=== PATIENT | female | born 1945 | race Caucasian/White ===

== ENCOUNTER 2020-01-18 13:27 | Inpatient (IN) | payer MEDICARE, OTHER, SELFPAY ==
[2020-01-18 13:30] VITALS: BP 104/49; PULSE 94; RESP 16; TEMP 37.1; O2SAT 94
[2020-01-18 13:56] VITALS: BMI 29.8; BMI 29.9
--- NOTE | 2020-01-18 14:08 | HP.PCM_ITS ---
Problem List (1) Osteoarthritis Status: Chronic (2) Depression Status: Chronic (3) Scoliosis of lumbar spine Status: Chronic (4) History of spinal fusion Status: Acute Comment: T4 through the pelvis with flap muscle/myocutaneous/fasciocutaneous trunk and removal of spinal stimulator (5) GERD (gastroesophageal reflux disease) Status: Chronic (6) Spinal stenosis Status: Chronic Qualifiers: Spinal region: thoracolumbar Qualified Code(s): M48.05 - Spinal stenosis, thoracolumbar region (7) History of migraine Status: Chronic (8) Tobacco dependence in remission Status: Inactive Comment: She quit smoking at the age of 32 (9) History of nephrolithiasis Status: Acute (10) Chronic pain syndrome Status: Chronic (11) Hypokalemia Status: Acute (12) Acute blood loss anemia Status: Acute (13) Medical cannabis use Status: Chronic (14) Abnormal LFTs Status: Acute (15) Transfusion history Status: Acute Comment: at [facility] had transfusion of PRBC's and plasma History of Present Illness Date of Admission: 01/18/20 Chief Complaint: Physical debility secondary to recent spinal fusion from T4 through the pelvis Marisol Vasquez is a 75 YO F with a PMH of GERD, severe spinal stenosis, spinal stimulator insertion, chronic pain syndrome, scoliosis, history of migraines, history of nephrolithiasis, depression, tobacco dependence in rem ission (quit when she was 32 years of age) and medical cannabis use who underwent a spinal fusion from T4 through the pelvis on 01/13/20 at [facility]. Plastic surgery closed the wound with a myocutaneous flap. While at [facility] she had acute blood loss anemia and was transfused with PRB's and plasma. Pre- operatively she had a ECHO that showed a normal EF and trivial AR with no diastolic dysfunction. [facility] for > 3 hours of therapy daily to restore her at or near her prior level of function. Past Medical History Past Medical History (Chronic Problems): Chronic Problems Osteoarthritis (Chronic) Depression (Chronic) Scoliosis of lumbar spine (Chronic) GERD (gastroesophageal reflux disease) (Chronic) Spinal stenosis (Chronic) History of migraine (Chronic) Chronic pain syndrome (Chronic) Medical cannabis use (Chronic) Home Medications: Ambulatory Orders Medication Instructions Recorded Acetaminophen 975 mg PO 4X/DAY 01/18/20 Cephalexin [Keflex] 500 mg PO Q12H PRN 01/18/20 Cholecalciferol (Vitamin D3) 2,000 unit PO DAILY 01/18/20 [Vitamin D3] Cyclobenzaprine HCl 5 mg PO TID PRN 01/18/20 Docusate Sodium 100 mg PO BID 01/18/20 Enoxaparin Sodium [Lovenox] 40 mg SQ DAILY 01/18/20 Meloxicam 15 mg PO DAILY 01/18/20 Omeprazole 40 mg PO DAILY 01/18/20 Oxycodone [Oxyir] 2.5 mg PO TID PRN 01/18/20 Pregabalin [Lyrica] 150 mg PO BID 01/18/20 Sennosides [Senna] 8.6 mg PO BID 01/18/20 Venlafaxine XR [Effexor Xr] 75 mg PO DAILY 01/18/20 Surgical History: - - Spinal fusion from T4 through the pelvis on 01/13/2020 at [facility]. Plastic surgery performed a flap muscle/myocutaneous/fasciocutaneous closure. Insertion and removal of a spinal stimulator. Prior spinal surgeries. 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 Her mother had breast cancer and also had Alzheimer's disease. Sibling History Items: - - She has a sister who had colon cancer and Alzheimer's disease. One brother had lung cancer and the other brother had prostate cancer. Review of Systems Constitutional: Denies: Chills, Fever, Weight Change Eyes: Denies: Blurred vision, Vision Change HEENT: Reports: Difficulty Swallowing - occasional trouble swallowing pills. Denies: Ear Pain, Head Aches, Nasal Congestion, Sinus Congestion, Sinus Drainage, Sore Throat Cardiovascular: Denies: Chest Pain, Edema, Light Headedness, Orthopnea, Palpitations Respiratory: Denies: Cough, Hemoptysis, Shortness of Breath, Shortness of breath at rest, Sputum production Gastrointestinal: Reports: Constipation. Denies: Abdominal Pain, Diarrhea, Nausea, Vomiting Genitourinary: Denies: Dysuria, Hematuria, Urgency Gynecological: Denies: Breast symptoms, Vaginal bleeding, Vaginal discharge Musculoskeletal: Reports: Back Pain - chronic BUT, the leg pain resolved with the recent surgerty. Denies: Joint Pain, Joint Tenderness Skin: Reports: Wounds - she has a incision over the spine extending from the top of the the thoracic spine to the pelvis. Denies: Jaundice, Rash Neurological: Denies: Change in Speech, Focal weakness, Headaches, Numbness, Tingling, Tremor, Seizures Psychiatric: Reports: Depression. Denies: Anxiety, Homicidal Ideations, Suicidal Ideations Endocrine: Reports: Change in Body Habitus - she lost weight to have the surgery. Denies: Hx of Thyroiditis Hematologic/ Lymphatic: Denies: Easy Bruising, Easy Bleeding, Hx of blood clot VTE Information - Inpt Only VTE Present on Admission: No VTE Mechan Device Prophylaxis: Knee High LILY Hose VTE Pharm Prophylaxis ordered?: Yes Patient Problems: Active and Suspected Problems History of spinal fusion (Acute) T4 through the pelvis with flap muscle/myocutaneous/fasciocutaneous trunk and removal of spinal stimulator History of nephrolithiasis (Acute) Hypokalemia (Acute) Acute blood loss anemia (Acute) Abnormal LFTs (Acute) Transfusion history (Acute) at [facility] had transfusion of PRBC's and plasma - Physical Exam General: Alert, Oriented x3, Cooperative, Well developed, Well nourished HEENT: Atraumatic, PERRLA, EOMI, Normocephalic Oral: No Gingival or Mucosal Lesions/ Ulcerations, Dry Mucosa Neck: Supple, No JVD, Negative Carotid Bruits, No Nodes, Trachea Midline Lungs: Clear to auscultation, Normal air movement Cardiovascular: Regular rate, Regular Rhythm, Normal S1, Normal S2, No murmurs, No Ectopic Activity, No rub noted, No Gallop Abdomen: Soft, Non Tender, Non-Distended, Hypoactive Bowel Sounds Extremities: No clubbing, No cyanosis, No edema, Capillary Refill Less than 3 Seconds, No Calf Tenderness, Peripheral Pulses Normal Skin: No rashes, No breakdown, Ulcer/ Wound - over the spine - the incision is intact with no dehiscence and no izzy-incisional erythema and no DC. Musculoskeletal: No Tenderness to Palpation of Joints or Extremities, Arthritic Changes Neurological: Cranial nerves II-XII grossly intact, Neuro grossly intact Psych/Mental Status: Normal Affect, Appropriate Assessment/Plan All Active Problems History of spinal fusion (Acute) History of nephrolithiasis (Acute) Hypokalemia (Acute) Acute blood loss anemia (Acute) Abnormal LFTs (Acute) Transfusion history (Acute) Impressions 1. Physical debility secondary to recent extensive spinal fusion extending from T4 through the pelvis on 01/13/2020 at [facility] with flap muscle/myocutaneous/fasciocutaneous closure. Previously placed spinal stimulator was removed. 2. Severe spinal stenosis 3. Severe scoliosis 4. Chronic pain syndrome 5. History of GERD 6. History of migraines 7. History of nephrolithiasis 8. History of depression 9. Acute blood loss anemia requiring transfusion of packed red blood cells and plasma at [facility] 10. Osteoarthritis 11. Medical cannabis use for pain control 12. Insomnia secondary to unrelieved pain at night PLAN PT for gait stability OT for ADL's ST for evaluation for difficulty swallowing. Analgesics as needed Bowel protocol Fall precautions Assess for Anxiety/Depression GI prophylaxis with Toprol salt DVT prophylaxis with LILY tatianna and Lovenox Follow up with Dr. Landaverde and [facility] surgery following DC from IP Rehab AM lab including CMP, CBC, Mag and Phos Start Tramadol for pain relief. She has had Tramadol in the past and has no adverse side effects. Inpatient E&M: 13147 Init Hosp L2
--- NOTE | 2020-01-18 15:12 | REHABEVAL_ITS ---
Admission Information Primary Diagnosis:: denility due to recent spinal fusion - T4-pelvis Status Changes from Prescreening?: No changes Identified Actual Problem List:: Bleeding, Infection, Skin Intergrity, Pain, ALteration in Cmfrt, Depression, Bowel, Constipation, Alteration in Sleep, Mobility Impaired, Self Care Deficit, Alteration-Leisure Activ. Potential Problem List:: DVT, Bleeding, Infection, UTI, Aspiration, Falls, Skin Integrity, Depression Risk of Complications DVT: LMWH, LILY Hose Bleeding: Monitor Lab Values, Nursing to Teach Precautions for anti-coagulation therapy., Wound, if applicable, to be assessed every shift., Stroke patients assessed for lethargy or change in status. Infection: Clinical Staff to Monitor for S/S of infection:, S/S of infection include fever, redness, warmth, etc. Urinary Tract Infection: Monitor for frequency, burning, discomfort, or incontinence., Nursing will obtain urine sample for urinalysis and C&S when ordered. Aspiration: Clinical staff will monitor for coughing, drooling, congestion., Speech will evaluate swallowing and dsyphasia., Nursing will monitor patient swallowing during meals. Falls: Patient will be evaluated for Fall Precautions, Patient will be placed on Fall Precautions as indicated per protocol. Skin Breakdown: Nursing will assess skin daily using assessment tool., Nursing will place on Skin Breakdown Precautions as indicated. Pain: Clinical staff will assess patient's pain level per protocol., Medications will be given, if needed, and the pain level reassessed., Other methods: Massage, distraction, decrease stimulus, etc. used PRN. Plan of Care Patient requires physician specializing in physical medicine and rehab oversight to provide close medical supervision of rehab issues including: Pain Management, Sleep Problems, Bowel and Bladder, Medical and co-morbidity Management, DVT prophylaxis, Rehabilitation Leadership, Coordination of treatment team Patient needs Physical Therapy: For a minimum of 1 hour, At least 5 out of 7 days Patient needs Physical Therapy to improve:: Mobility, Mobility, Mobility, Strengthening, Transfers, Stretching, ROM, Endurance, Stairs, Gait, Balance Patient needs Occupational Therapy: For a minimum of 1 hour, At least 5 out of 7 days Patient needs Occupational Therapy to improve ADL's incl.: Eating, Grooming, Bathing, Dressing, Toileting, Toilet transfers, Community Reintegration, Higher functioning activities, Household tasks, Adaptive Equipment, Splinting, Other activities as determined Patient requires speech therapy for: Swallowing, - - swallowing eval only Patient requires 24/7 Rehabilitation Nursing for: Pain Issues, Identifying and preventing risk factors, Monitoring and reporting current medical conditions, Assisting with ambulation, transfer, and all ADL's, Teaching patients about disease process and medications, Family teaching, Providing safe environment, Bowel and Bladder Issues, Skin integrity, Medication Management Patient needs Replanting Machine Crewman/ Case Management for: Discharge Planning, Arran ging Home Equipment or Services, Family Interventions Patient needs Dietary and Nutrition Services for: Adequate Nutrition, Nutritional Supplements, Nutritional Education Goals Patient will remain: free from falls, or injury at time of discharge. Patient will perform bed mobility at: MOD I level of assist. Patient will complete transfers from bed to chair at: MOD I level of assist. Patient will ambulate: with MOD I assist, with LRD, - - 350 Patient will propel wheelchair: - - N/A Patient will complete upper body dressing at: MOD I level of assist. Patient will complete lower body dressing at: MOD I level of assist. Patient will complete toileting at: MOD I level of assist. Patient will perform bathing at: MOD I level of assist. Patient will complete grooming at: MOD I level of assist. Patient will complete home management skills at: MOD I level of assist. Patient will achieve: at MOD I assist, - - 2 steps Patient will have pain level of: of 3 or less Patient's skin will: remain intact, free from infection. Patient will receive: adequate nutrition. Discharge Planning Pt Prognosis for Sig. Practical Improv. w/in Reasonable Time: Good Estimated Length of stay (days): 14 Anticipated D/C Destination: Home Was Preadmission Assessment Accurate?: Yes
[2020-01-18] MEDS: traMADol 50 MG Tablet PO ×2 (15:30→20:58)
--- NOTE | 2020-01-18 17:23 | NURSING ---
pt found out of bed and bending over taking pants and underwear off. bed exit going off. pt stated, im sorry, i called for help but then i knew i wasnt going to make it. i know im supposed to have that brace thingie on. assisted to br with nurse and voided large amt urine. gregory emptied and tubing stripped for 80cc serosanguinous drng. pt back to chair and pa alarm on. ordered supper for and resting in bed with pain much better.
[2020-01-18] MEDS: Acetaminophen 325 MG Tablet 975 MG PO ×2 (17:35→23:23)
[2020-01-18 19:50] VITALS: BP 99/56; PULSE 84; PULSE 98; RESP 16; TEMP 37.3; O2SAT 96
[2020-01-18] MEDS: Cephalexin 500 MG Capsule PO (20:58)
[2020-01-18] MEDS: Pregabalin 75 MG Capsule 150 MG PO (20:58)
[2020-01-18] MEDS: Docusate Sodium 100 MG Capsule PO (20:58)
[2020-01-18] MEDS: Folic Acid 1 MG Tablet PO (20:58)
[2020-01-18] MEDS: Senna Tablet 1 TABLET PO (20:59)
[2020-01-18 21:20] VITALS: TEMP 37.2
--- NOTE | 2020-01-19 03:08 | NURSING ---
Reviewed and agree with PHOTOGRAPH ENLARGER documentation and charting.
[2020-01-19] MEDS: Acetaminophen 325 MG Tablet 975 MG PO ×4 (05:51→23:35)
[2020-01-19 05:53] LABS: Absolute Neutrophil Count 5.2 X10^3/uL (2.0-7.7); Basophil# 0.02 X10^3/uL; Basophil% 0.3 % (0-1); Eosinophil# 0.17 X10^3/uL; Eosinophils% 2.4 % (0-5); Hematocrit 27.2 % (37-47); Hemoglobin 8.5 g/dL (12.0-15.0); Lymphocyte % 14.2 % (19-41); Mean Corp Hgb Conc 31.3 g/dL (32-36); Mean Corpuscular Hgb 28.3 pg (27.0-32.0); Mean Corpuscular Volume 90.7 fL (81-99); Monocyte# 0.61 X10^3/uL; Monocyte% 8.6 % (0-10); NRBC Flagged by Analyzer 0 % (0-5); Neutrophil # 5.21 X10^3/uL (2.7-7.7); Neutrophil % 73.8 % (47-70); Platelet Count 201 K/mm3 (150-450); RBC Distribution Width CV 17.2 % (11.6-14.6); RBC Distribution Width SD 56.7 fl (35.1-43.9); White Blood Count 7.1 K/mm3 (4.4-11.0)
[2020-01-19 06:28] LABS: ALB/GLOB Ratio 0.7 RATIO (0.9-2.4); AST(SGOT) 68 U/L (15-37); Alanine Aminotransfer ALT/SGPT 58 U/L (13-56); Albumin, Serum 2.4 g/dL (3.2-5.0); Alkaline Phosphatase 176 U/L (45-117); Anion Gap 7 (5-15); BUN 7 mg/dL (7-18); BUN/Creat Ratio 12.2 RATIO (10-20); Calcium,Total 8.3 mg/dL (8.5-10.1); Chloride 104 mmol/L (98-107); Creatinine, Serum 0.57 mg/dL (0.55-1.02); EST Glomerular Filtration Rate 110 mL/min (>60); Est Glom Filt Rate - Afr Amer 133 mL/min (>60); Estimated Creatinine Clearance 49.51 ml/min; Globulin 3.3 g/dL (2.2-4.2); Glucose 105 mg/dL (74-106); Magnesium 2.3 mg/dL (1.6-2.6); Phosphorus 3.4 mg/dL (2.5-4.9); Potassium 3.1 mmol/L (3.5-5.1); Protein, Total 5.7 g/dL (6.4-8.2); Sodium Level 142 mmol/L (136-145)
[2020-01-19] MEDS: Senna Tablet 1 TABLET PO ×2 (07:39→20:11)
[2020-01-19] MEDS: Cephalexin 500 MG Capsule PO ×2 (07:40→20:11)
[2020-01-19] MEDS: Meloxicam 15 MG Tablet PO (07:40)
[2020-01-19] MEDS: Enoxaparin 40 MG/0.4 ML Syringe SC (07:40)
[2020-01-19] MEDS: Pantoprazole Sodium 40 MG Tablet PO (07:40)
[2020-01-19] MEDS: Pregabalin 75 MG Capsule 150 MG PO ×2 (07:40→20:11)
[2020-01-19] MEDS: Venlafaxine XR 75 MG Capsule PO ×2 (07:44→07:45)
[2020-01-19] MEDS: Docusate Sodium 100 MG Capsule PO ×2 (07:45→20:11)
[2020-01-19 09:30] VITALS: BP 127/69; PULSE 89; RESP 20; TEMP 37; O2SAT 96
--- NOTE | 2020-01-19 11:57 | PN_ITS ---
Patient Problems: Active and Suspected Problems History of spinal fusion (Acute) T4 through the pelvis with flap muscle/myocutaneous/fasciocutaneous trunk and removal of spinal stimulator History of nephrolithiasis (Acute) Hypokalemia (Acute) Acute blood loss anemia (Acute) Abnormal LFTs (Acute) Transfusion history (Acute) at [facility] had transfusion of PRBC's and plasma Subjective: Afebrile VSS Maintaining appropriate oxygen saturation on RA Oral intake is fair Discussed with nursing - no problems that need addressed Reviewed the PT/OT notes Medication list reviewed. Tramadol has been effective in relieving pain and she slept well last night. She had only a small BM yesterday and still feels constipated. All lab was personally reviewed. Hemoglobin is 8.5 with an MCV of 90.7. The platelets and white blood cell count are within normal limits. Potassium is low at 3.1 and the BUN is 7 with a creatinine of 0.57. Calcium corrected for hypoalbuminemia is 9.5. LFTs are mildly abnormal with a AST of 68, ALT of 58 and alkaline phosphatase of 156. This is not surprising given the fact that she recently had spinal fusion with a myocutaneous flap closure. - Physical Exam Vitals/I&O's: Vital Signs Temp Pulse Resp BP Pulse Ox 98.6 F 89 20 H 127/69 H 96 01/19/20 09:30 01/19/20 09:30 01/19/20 09:30 01/19/20 09:30 01/19/20 09:30 Oxygen Delivery Method Room Air Weight: 138 lb Body Mass Index (BMI) 29.8 Intake and Output for Last 24 Hours 01/17/20 01/18/20 01/19/20 23:59 23:59 23:59 Intake Total 900 / 900 680 / 680 Output Total 385 / 385 990 / 990 Balance 515 / 515 -310 / -310 General: Alert, Oriented x3, Cooperative, No apparent distress, Well developed, Well nourished Oral: Dry Mucosa Neck: Supple, No JVD, No Nodes Lungs: Clear to auscultation Cardiovascular: Regular rate, Regular Rhythm, Normal S1, Normal S2, No Gallop Abdomen: Soft, Non Tender Extremities: No edema - mild at the ankle Skin: No rashes, Incision - intact with no erythema, dehiscence or DC Neurological: Cranial nerves II-XII grossly intact, Neuro grossly intact Psych/Mental Status: Normal Affect, Appropriate Laboratory Results 01/19/20 05:45: WBC 7.1, RBC 3.00 L, Hgb 8.5 L, Hct 27.2 L, MCV 90.7, MCH 28.3, MCHC 31.3 L, RDW Std Deviation 56.7 H, RDW Coeff of Venu 17.2 H, Plt Count 201, MPV 10.0, Immature Gran % (Auto) 0.700, Neut % (Auto) 73.8 H, Lymph % (Auto) 14.2 L, [place] % (Auto) 8.6, Eos % (Auto) 2.4, Baso % (Auto) 0.3, Absolute Neuts (auto) 5.2, Absolute Lymphs (auto) 1.00, Nucleated RBC % 0 01/19/20 05:45: Sodium 142, Potassium 3.1 L, Chloride 104, Carbon Dioxide 31.0, Anion Gap 7, BUN 7, Creatinine 0.57, Estim Creat Clear Calc 49.51, Est GFR (MDRD) Af Amer 133, Est GFR (MDRD) Non-Af 110, BUN/Creatinine Ratio 12.2, Glucose 105, Calcium 8.3 L, Phosphorus 3.4, Magnesium 2.3, Total Bilirubin 0.90, AST 68 H, ALT 58 H, Alkaline Phosphatase 176 H, Total Protein 5.7 L, Albumin 2.4 L, Globulin 3.3, Albumin/Globulin Ratio 0.7 L Current Medications Acetaminophen (Acetaminophen 325 Mg Tablet) 975 mg PO Q6 [facility] Last Admin: 01/19/20 11:40 Dose: 975 mg Documented by: Bisacodyl (Bisacodyl 10 Mg Suppository) 10 mg RECTAL .PRN X 1 PRN PRN Reason: Constipation Cephalexin (Cephalexin 500 Mg Capsule) 500 mg PO Q12H [facility] Stop: 02/01/20 22:01 Last Admin: 01/19/20 07:40 Dose: 500 mg Documented by: Cholecalciferol (Cholecalciferol (Vit D3) 1,000 Unit (25mcg)) 2,000 unit PO DAILY [facility] Last Admin: 01/19/20 07:39 Dose: 2,000 unit Documented by: Cyclobenzaprine HCl (Cyclobenzaprine Hcl 5 Mg Tablet) 5 mg PO TID PRN PRN Reason: SPASMS Docusate Sodium (Docusate Sodium 100 Mg Capsule) 100 mg PO BID [facility] Last Admin: 01/19/20 07:45 Dose: 100 mg Documented by: Enoxaparin Sodium (Enoxaparin 40 Mg/0.4 Ml Syringe) 40 mg SC DAILY [facility] Last Admin: 01/19/20 07:40 Dose: 40 mg Documented by: Folic Acid (Folic Acid 1 Mg Tablet) 1 mg PO 2100 [facility] Last Admin: 01/18/20 20:58 Dose: 1 mg Documented by: Magnesium Hydroxide (Magnesium Hydroxide 30 Ml Udc) 30 ml PO .PRN X 1 PRN PRN Reason: Constipation Meloxicam (Meloxicam 15 Mg Tablet) 15 mg PO DAILY [facility] Last Admin: 01/19/20 07:40 Dose: 15 mg Documented by: Oxycodone HCl (Oxycodone 5 Mg Tablet) 2.5 mg PO Q8 PRN PRN Reason: PAIN 7-10 Pantoprazole Sodium (Pantoprazole Sodium 40 Mg Tablet) 40 mg PO DAILY [facility] Last Admin: 01/19/20 07:40 Dose: 40 mg Documented by: Potassium Chloride (Potassium Chloride 20 Meq Tablet) 20 meq PO Q4H [facility] Stop: 01/19/20 19:16 Last Admin: 01/19/20 11:40 Dose: 20 meq Documented by: Pregabalin (Pregabalin 75 Mg Capsule) 150 mg PO BID [facility] Last Admin: 01/19/20 07:40 Dose: 150 mg Documented by: Senna (Senna Tablet) 1 tablet PO BID [facility] Last Admin: 01/19/20 07:39 Dose: 1 tablet Documented by: Tramadol HCl (Tramadol 50 Mg Tablet) 50 mg PO TID PRN PRN PRN Reason: PAIN 5-6 Last Admin: 01/18/20 15:30 Dose: 50 mg Documented by: Tramadol HCl (Tramadol 50 Mg Tablet) 50 mg PO 2100 [facility] Last Admin: 01/18/20 20:58 Dose: 50 mg Documented by: Venlafaxine HCl (Venlafaxine Xr 75 Mg Capsule) 75 mg PO DAILY [facility] Last Admin: 01/19/20 07:45 Dose: 75 mg Documented by: Medical Necessity - Tobacco Use Smoking Status: Former smoker - quit at 32 YOA Tobacco Use: Non-smoker Assessment/Plan All Active Problems History of spinal fusion (Acute) History of nephrolithiasis (Acute) Hypokalemia (Acute) Acute blood loss anemia (Acute) Abnormal LFTs (Acute) Transfusion history (Acute) Impressions 1. Physical debility secondary to recent extensive spinal fusion extending from T4 through the pelvis on 01/13/2020 at [facility] with flap muscle/myocutaneous/fasciocutaneous closure. Previously placed spinal stimulator was removed. 2. Severe spinal stenosis 3. Severe scoliosis 4. Chronic pain syndrome 5. History of GERD 6. History of migraines 7. History of nephrolithiasis 8. History of depression 9. Acute blood loss anemia requiring transfusion of packed red blood cells and plasma at [facility] 10. Osteoarthritis 11. Medical cannabis use for pain control 12. Insomnia secondary to unrelieved pain at night Continue tramadol as needed for pain control. Since tramadol increases serotonin levels and she is on Effexor will monitor for any signs of serotonin syndrome however she is on a low dose of Effexor and is likely not at high risk for this. Continue therapy Inpatient E&M: 51818 Subs Hosp L2
--- NOTE | 2020-01-19 17:08 | NURSING ---
alarm going off while this rn and fork repairer in a 2 assist room down the reyes. pt found in br in merrick stockings with incontinence of urine. pt apologizing and stated, i know i was debating pulling that cord to go but i put my light on and noone answered so had to go so didnt make a mess for you girls pt cleaned up and legs washed with soap and water and to chair for supper. pa again back on for saftechacorta.
[2020-01-19 20:00] VITALS: BP 118/59; PULSE 78; RESP 18; TEMP 36.9; O2SAT 96
[2020-01-19] MEDS: Folic Acid 1 MG Tablet PO (20:11)
[2020-01-19] MEDS: traMADol 50 MG Tablet PO (20:11)
--- NOTE | 2020-01-20 01:32 | NURSING ---
REVIEWED AND AGREE WITH HEALTH PROFESSIONAL'S FUNCTIONAL ASSESSMENT AND HANDOFF CHARTING.
[2020-01-20] MEDS: Enoxaparin 40 MG/0.4 ML Syringe SC (05:03)
[2020-01-20] MEDS: Acetaminophen 325 MG Tablet 975 MG PO ×3 (06:36→18:21)
[2020-01-20] MEDS: Meloxicam 15 MG Tablet PO (08:03)
[2020-01-20] MEDS: Pantoprazole Sodium 40 MG Tablet PO (08:03)
[2020-01-20] MEDS: traMADol 50 MG Tablet PO ×2 (08:04→20:38)
[2020-01-20] MEDS: Senna Tablet 1 TABLET PO (08:04)
[2020-01-20] MEDS: Docusate Sodium 100 MG Capsule PO (08:04)
[2020-01-20] MEDS: Pregabalin 75 MG Capsule 150 MG PO ×2 (08:52→20:38)
[2020-01-20] MEDS: Cephalexin 500 MG Capsule PO ×2 (09:16→20:38)
[2020-01-20 10:00] VITALS: BP 121/66; PULSE 86; RESP 18; TEMP 36.8; O2SAT 97
[2020-01-20] MEDS: Folic Acid 1 MG Tablet PO (20:32)
[2020-01-20 22:00] VITALS: BP 123/58; PULSE 85; RESP 18; TEMP 36.8; O2SAT 97
[2020-01-21] MEDS: traMADol 50 MG Tablet PO ×3 (04:18→22:06)
[2020-01-21] MEDS: Enoxaparin 40 MG/0.4 ML Syringe SC (05:35)
[2020-01-21] MEDS: Acetaminophen 325 MG Tablet 975 MG PO ×3 (05:36→17:00)
[2020-01-21 07:30] VITALS: BP 113/62; PULSE 99; RESP 16; TEMP 37.3; O2SAT 95
[2020-01-21] MEDS: Venlafaxine XR 75 MG Capsule PO (07:46)
[2020-01-21] MEDS: Pantoprazole Sodium 40 MG Tablet PO (07:46)
[2020-01-21] MEDS: Meloxicam 15 MG Tablet PO (07:46)
[2020-01-21] MEDS: Pregabalin 75 MG Capsule 150 MG PO ×2 (10:53→22:07)
[2020-01-21] MEDS: Cephalexin 500 MG Capsule PO ×2 (10:53→22:07)
--- NOTE | 2020-01-21 18:49 | NURSING ---
alarm sounding, pt laying in bed on stomach when staff entered room, nursing staff notified that when she turns onto stomach that is considered twisting and per orders she is not to do so. pt c/o back pain, will administer prn ultram and monitor.
[2020-01-21 18:55] VITALS: BP 106/49; PULSE 90; RESP 18; TEMP 36.4; O2SAT 96
[2020-01-21] MEDS: Folic Acid 1 MG Tablet PO (22:06)
[2020-01-22] MEDS: Acetaminophen 325 MG Tablet 975 MG PO ×5 (00:36→23:50)
[2020-01-22] MEDS: traMADol 50 MG Tablet PO ×3 (01:06→19:55)
[2020-01-22] MEDS: oxyCODONE 5 MG Tablet 2.5 MG PO ×2 (04:58→23:51)
[2020-01-22] MEDS: Enoxaparin 40 MG/0.4 ML Syringe SC (05:42)
[2020-01-22] MEDS: Pantoprazole Sodium 40 MG Tablet PO (07:45)
[2020-01-22] MEDS: Venlafaxine XR 75 MG Capsule PO (07:46)
[2020-01-22] MEDS: Meloxicam 15 MG Tablet PO (07:46)
[2020-01-22 08:00] VITALS: BP 140/65; PULSE 90; RESP 15; TEMP 36.8; O2SAT 99
[2020-01-22] MEDS: Cephalexin 500 MG Capsule PO ×2 (09:04→19:57)
[2020-01-22] MEDS: Pregabalin 75 MG Capsule 150 MG PO ×2 (11:41→19:56)
[2020-01-22 19:00] VITALS: BP 100/50; PULSE 94; RESP 18; TEMP 36.8; O2SAT 97
[2020-01-22 19:30] VITALS: PULSE 94; RESP 18; O2SAT 97
[2020-01-22] MEDS: Docusate Sodium 100 MG Capsule PO (19:56)
[2020-01-22] MEDS: Folic Acid 1 MG Tablet PO (19:56)
[2020-01-22] MEDS: Senna Tablet 1 TABLET PO (19:56)
--- NOTE | 2020-01-23 04:34 | NURSING ---
REVIEWED AND AGREE WITH NUT CULLER'S FUNCTIONAL ASSESSMENT AND HANDOFF CHARTING.
[2020-01-23] MEDS: Enoxaparin 40 MG/0.4 ML Syringe SC (04:48)
[2020-01-23] MEDS: cycloBENZAPRine HCl 5 MG TABLET PO (04:57)
--- NOTE | 2020-01-23 06:14 | NURSING ---
pt reports have increased pain to her left upper back this hs , rating a 7/9-10 on the pain scale, staff tried oxyir, scheduled tylenol , ultram and flexeril, ice pack as well with fair effect. pt remains painful this am 9-10 at this time
[2020-01-23] MEDS: Acetaminophen 325 MG Tablet 975 MG PO ×3 (06:21→17:33)
[2020-01-23] MEDS: Venlafaxine XR 75 MG Capsule PO (07:52)
[2020-01-23] MEDS: Pregabalin 75 MG Capsule 150 MG PO ×2 (07:53→20:46)
[2020-01-23] MEDS: Meloxicam 15 MG Tablet PO (07:54)
[2020-01-23] MEDS: Pantoprazole Sodium 40 MG Tablet PO (07:54)
[2020-01-23] MEDS: traMADol 50 MG Tablet PO ×3 (08:02→20:47)
--- NOTE | 2020-01-23 08:40 | PN_ITS ---
Patient Problems: Active and Suspected Problems History of spinal fusion (Acute) T4 through the pelvis with flap muscle/myocutaneous/fasciocutaneous trunk and removal of spinal stimulator History of nephrolithiasis (Acute) Hypokalemia (Acute) Acute blood loss anemia (Acute) Abnormal LFTs (Acute) Transfusion history (Acute) at OSH had transfusion of PRBC's and plasma Subjective: Marisol was seen on team rounds today and her Marko participated by phone. Afebrile VSS-the resting heart rate is in the 90s. Blood pressure is adequately controlled. Maintaining appropriate oxygen saturation on RA Oral intake is good Bowel function is good. Total drainage from the JU drain on 01/22/2020 was 150 cc. Discussed with nursing -Marisol is very impulsive and frequently takes off her monitor and ambulates out to the nursing station. She does not wear her brace as prescribed and can be found sitting up and walking in her room without the brace. Reviewed the PT/OT/ST notes Medication list reviewed. She is rarely taking tramadol and no more than once daily for pain. She has no complaints today. She was given the option of going home Wed after her appt with orthopedics or staying until Sat and she and her agreed on Wed. I reminded Marisol and her that it is very important to stick to her back precautions which includes no bending, lifting or twisting. She must also wear the back brace anytime she is out of bed. Speech therapy is making her a memory block and her will remind her to stick to her precautions when she is at home. - Physical Exam Vitals/I&O's: Vital Signs Temp Pulse Resp BP Pulse Ox 98.2 F 94 18 100/50 L 97 01/22/20 19:00 01/22/20 19:30 01/22/20 19:30 01/22/20 19:00 01/22/20 19:30 Oxygen Delivery Method Room Air Weight: 138 lb 0.009 oz Body Mass Index (BMI) 29.8 Intake and Output for Last 24 Hours 01/22/20 01/22/20 01/23/20 00:59 23:59 23:59 Intake Total 400 / 400 Output Total 40 / 40 Balance 360 / 360 General: Alert, Oriented x3, Cooperative, No apparent distress Oral: Moist Mucosa Neck: Supple Lungs: Clear to auscultation Cardiovascular: Regular rate, Regular Rhythm, Normal S1, Normal S2, No Gallop Abdomen: Bowel Sounds Present, Soft, Non Tender, Non-Distended Extremities: No edema Skin: No rashes, No breakdown, - - The incision is intact with no dehiscence. There is no periincisional erythema and no discharge from the incision. The fluid in the JU drain is thin and red tinged Neurological: Cranial nerves II-XII grossly intact, Neuro grossly intact Psych/Mental Status: Normal Affect, Appropriate Current Medications Acetaminophen (Acetaminophen 325 Mg Tablet) 975 mg PO Q6 [facility] Last Admin: 01/23/20 06:21 Dose: 975 mg Documented by: Bisacodyl (Bisacodyl 10 Mg Suppository) 10 mg RECTAL .PRN X 1 PRN PRN Reason: Constipation Cephalexin (Cephalexin 500 Mg Capsule) 500 mg PO Q12H [facility] Stop: 02/01/20 22:01 Last Admin: 01/22/20 19:57 Dose: 500 mg Documented by: Cholecalciferol (Cholecalciferol (Vit D3) 1,000 Unit (25mcg)) 2,000 unit PO DAILY [facility] Last Admin: 01/23/20 07:54 Dose: 2,000 unit Documented by: Cyclobenzaprine HCl (Cyclobenzaprine Hcl 5 Mg Tablet) 5 mg PO TID PRN PRN Reason: SPASMS Last Admin: 01/23/20 04:57 Dose: 5 mg Documented by: Docusate Sodium (Docusate Sodium 100 Mg Capsule) 100 mg PO BID [facility] Last Admin: 01/23/20 07:50 Dose: Not Given Documented by: Enoxaparin Sodium (Enoxaparin 40 Mg/0.4 Ml Syringe) 40 mg SC DAILY@0600 [facility] Last Admin: 01/23/20 04:48 Dose: 40 mg Documented by: Folic Acid (Folic Acid 1 Mg Tablet) 1 mg PO 2100 [facility] Last Admin: 01/22/20 19:56 Dose: 1 mg Documented by: Magnesium Hydroxide (Magnesium Hydroxide 30 Ml Udc) 30 ml PO .PRN X 1 PRN PRN Reason: Constipation Meloxicam (Meloxicam 15 Mg Tablet) 15 mg PO DAILY [facility] Last Admin: 01/23/20 07:54 Dose: 15 mg Documented by: Oxycodone HCl (Oxycodone 5 Mg Tablet) 2.5 mg PO Q8 PRN PRN Reason: PAIN 7-10 Last Admin: 01/22/20 23:51 Dose: 2.5 mg Documented by: Pantoprazole Sodium (Pantoprazole Sodium 40 Mg Tablet) 40 mg PO DAILY [facility] Last Admin: 01/23/20 07:54 Dose: 40 mg Documented by: Pregabalin (Pregabalin 75 Mg Capsule) 150 mg PO BID [facility] Last Admin: 01/23/20 07:53 Dose: 150 mg Documented by: Senna (Senna Tablet) 1 tablet PO BID [facility] Last Admin: 01/23/20 07:50 Dose: Not Given Documented by: Tramadol HCl (Tramadol 50 Mg Tablet) 50 mg PO TID PRN PRN PRN Reason: PAIN 5-6 Last Admin: 01/23/20 08:02 Dose: 50 mg Documented by: Tramadol HCl (Tramadol 50 Mg Tablet) 50 mg PO 2100 [facility] Last Admin: 01/22/20 19:55 Dose: 50 mg Documented by: Venlafaxine HCl (Venlafaxine Xr 75 Mg Capsule) 75 mg PO DAILY [facility] Last Admin: 01/23/20 07:52 Dose: 75 mg Documented by: Medical Necessity - Tobacco Use Smoking Status: Former smoker - quit at 32 YOA Tobacco Use: Non-smoker Assessment/Plan All Active Problems History of spinal fusion (Acute) History of nephrolithiasis (Acute) Hypokalemia (Acute) Acute blood loss anemia (Acute) Abnormal LFTs (Acute) Transfusion history (Acute) Impressions 1. Physical debility secondary to recent extensive spinal fusion extending from T4 through the pelvis 2. Acute blood loss anemia 3. Hypokalemia supplemented 4. Mild cognitive dysfunction-especially with short-term memory. Speech therapy is making a memory book for her. We reinforced the need to maintain no bending, lifting or twisting Recheck potassium and H/H in a.m. Continue therapy Plan on discharge 01/25/2020 to home. Orthopedics to decide whether she should have home health care for therapy or outpatient. Nursing is making a call to [facility] today to report the drainage from the JU drain. She will follow up with them on Thu. Inpatient E&M: 15946 Subs Hosp L2
[2020-01-23 09:15] VITALS: BP 123/65; PULSE 91; RESP 18; TEMP 36.8; O2SAT 96
--- NOTE | 2020-01-23 10:25 | CASEMGMT ---
Social Work IDT met with patient and via conference call for Team meeting. Discussed patient's progress in therapy. Pt is SBA for tx, ambulating 150ft with FWW at SBA,transitioning to no device,, wears back brace. Needs total assist for brace management. Pt needs cues to not twist or lay on stomach. Pt needs assistance with shoes, SBA for all UE/LE ADLS, standing SBA for grooming, toilet tx, using AE for toileting tasks or without AE Milton, [place] for bathing. ST assessed swallowing and cognition. Working on ST memory and pt having poor safety awareness. Incision looks good. Has JU drain but having drainage. Pt has f/u appt with surgeon 01/24. Explained Medicare approved days 10 days with [facility] 01/27. Pt requesting to DC 01/24 prior to appt. IDT agreeable. Therapy to let surgeon decide to complete outpatient therapy or HHC. Provided pt with SW contact information to call after appt for SW to order needed HHC/DME. Plan: DC home with 01/24. Raven Lovett, [employer]
[2020-01-23] MEDS: Cephalexin 500 MG Capsule PO ×2 (10:34→20:47)
--- NOTE | 2020-01-23 14:00 | NURSING ---
Plastic Surgeons office made aware of total intake from 01-18-20 until current of serosang UJ drainage. Patient has an appt next week.
[2020-01-23 19:34] VITALS: BP 121/65; PULSE 89; RESP 17; TEMP 36.4; O2SAT 96
[2020-01-23 20:00] VITALS: PULSE 89; RESP 17; O2SAT 96
[2020-01-23] MEDS: Docusate Sodium 100 MG Capsule PO (20:47)
[2020-01-23] MEDS: Folic Acid 1 MG Tablet PO (20:47)
[2020-01-23] MEDS: Senna Tablet 1 TABLET PO (20:47)
[2020-01-24] VITALS (8 sets, daily range): BP systolic 92–148; BP diastolic 52–71; PULSE 80–89; RESP 16–18; TEMP 36.4–37.1; O2SAT 96–98
[2020-01-24] MEDS: Acetaminophen 325 MG Tablet 975 MG PO ×4 (00:27→18:31)
--- NOTE | 2020-01-24 03:21 | NURSING ---
Reviewed and agree with documentation and charting.
[2020-01-24] MEDS: oxyCODONE 5 MG Tablet 2.5 MG PO (04:51)
[2020-01-24] MEDS: Enoxaparin 40 MG/0.4 ML Syringe SC (04:58)
[2020-01-24 05:45] LABS: Hematocrit 24.8 % (37-47); Hemoglobin 7.4 g/dL (12.0-15.0)
[2020-01-24 06:01] LABS: Potassium 3.6 mmol/L (3.5-5.1)
[2020-01-24] MEDS: Meloxicam 15 MG Tablet PO (07:48)
[2020-01-24] MEDS: Pantoprazole Sodium 40 MG Tablet PO (07:48)
[2020-01-24] MEDS: Venlafaxine XR 75 MG Capsule PO (07:48)
[2020-01-24] MEDS: traMADol 50 MG Tablet PO ×3 (09:20→20:02)
[2020-01-24] MEDS: Cephalexin 500 MG Capsule PO ×2 (09:20→20:01)
[2020-01-24] MEDS: Pregabalin 75 MG Capsule 150 MG PO ×2 (09:20→20:01)
--- NOTE | 2020-01-24 16:54 | PCM.PN.BLA ---
Progress Note Afebrile VSS Maintaining appropriate oxygen saturation on RA Oral intake is good The JU drain put out 180 cc on 01/22/2020 and 210 cc on 01/23/2020. the drainage is still thin and red tinged. No odor and does not appear purulent. she has been having at least one BM daily Discussed with nursing - no problems that need addressed Reviewed the PT/OT/ST notes Medication list reviewed. Hemoglobin was 7.4 today, down from 8.5 on 01/19/2020. Hypokalemia has resolved with supplementation and the potassium today is 3.6. She is somewhat better hydrated than at admission.She was transfused at [facility] for acute blood loss anemia. She denies lightheadedness, CP, PUENTES, palpitations, N/V/abd pain. Pain is well controlled. She is taking tramadol usually 3 times daily at bedtime. She is also taking Tylenol 975 mg p.o. usually 3 times a day and Oxycodone 2.5 mg rarely. Lungs - CTA MM are moist abd - soft, NT, ND, normal BS's present no edema, no rashes and the incision is intact without dehiscence. There is no izzy-incisional erythema, no adverse swelling no discharge. Impressions 1. Hypokalemia - resolved 2. acute blood loss anemia - suspect the drop since admission is not due to active bleeding but, due to hydration/equilibration. She was dehydrated at admission and she is now hydrated with good moist MM. 3. debiity due to recent T4-pelvis spinal fusion for severe spinal stenosis and scoliosis Transfuse with 1 unit of RBC's ordered. Recheck an HH at 0500 in the AM Plan DC early in the morning so that she can follow wup with orthopedic surgery in the AM Check a Hemoccult stool STROKE Vital Signs/Narrative: Vital Signs Temp Pulse Resp BP Pulse Ox 01/24/20 15:39 97.6 F L 80 17 106/58 L 97 01/24/20 14:39 98.7 F 84 17 92/52 L 97 01/24/20 14:24 98.7 F 85 16 92/52 L 97 01/24/20 14:14 98.0 F 83 18 102/54 L 98 Inpatient E&M: [id number] Subs Hosp L1
--- NOTE | 2020-01-24 17:49 | DCINST_ITS ---
- Discharge Diagnoses Current Active Problems: Current Active and Chronic Problems Osteoarthritis (Chronic) Depression (Chronic) Scoliosis of lumbar spine (Chronic) History of spinal fusion (Acute) T4 through the pelvis with flap muscle/myocutaneous/fasciocutaneous trunk and removal of spinal stimulator GERD (gastroesophageal reflux disease) (Chronic) Spinal stenosis (Chronic) History of migraine (Chronic) History of nephrolithiasis (Acute) Chronic pain syndrome (Chronic) Hypokalemia (Acute) Acute blood loss anemia (Acute) Medical cannabis use (Chronic) Abnormal LFTs (Acute) Transfusion history (Acute) at OSH had transfusion of PRBC's and plasma You will use the following diet at home:: Regular Your food should be the consistency of: Regular Your liquids should be the consistency of: Regular/Thin Discharge Activity: May Not Drive, May not drive while taking narcotic pain medications., May Shower, - - NO BENDING, LIFTING OR TWISTING. Wear your back brace at all times unless you are in bed. May resume sexual activity in: - - this decision will be up to the orthopedic surgeon. Weight Bearing Status: Full weight bearing Call your doctor if your incision/area has: Continuous Slow Oozing, Sudden Increased Bleeding, Increased Pain/ Swelling, Increased Redness, Foul Smelling Discharge, Swelling at the incision site Call your doctor if you observe: Fever of 101 or Higher, Numbness or Tingling - in your legs, Shortness of breath, Dizziness, Fainting spells, Swelling in the ankles, Chest pain, Increased palpitations (irregular heartbeat), Calf discomfort, Uncontrolled pain, - - Call your PCP if severe diarrhea ( > 5 stools a day), painful sores in the mouth, painful swallowing, rash or itching. Taking a probiotic such as Lactobacillus or Kefir can help with loose stools while taking antibiotics. Suture Line Care: Avoid Pulling/Pushing, Avoid Pinching/Bending Cleanse incision/area with: Soap & Water Drain: Casey Instructions: Spinal Fusion: Posterior Lumbar, Spinal Fusion: Recovery, Lumbar Fusion Additional Instructions: 1. You had a BIG surgery. The area fused was extensive. In order for the vertebrae in the back to fuse properly you MUST NOT bend, lift or twist. It will take 6-12 months for the bones to fuse properly. D not leyva it. The more you bend and twist the harder it is for the bone to fuse. ALWAYS wear your back brace when you are out of bed until the orthopedic surgeon tells you it is Okay to quit wearing it. The brace supports your back and keeps it aligned. 2. It is Okay to take showers but do not soak in a tub because this could lead to break down of the incision until it is healed. 3. The nurses will teach Marko how to empty the drain properly. 4. You have been taking a antibiotic called Cephalexin (Keflex) since the surgery to prevent infection from the bacteria that lives on everyone's skin. Make sure to take ALL of the antibiotic until it is all gone. It will finish on 01/31 after the last dose of the day. 5. You will continue to need therapy after you go home and the surgeon will tell you if he wants you to have therapy at home or at a gym. therapy in a pool is sometimes good for patients after back surgeries because the water off loads the weight of the person. The incision will need to be completely healed and the drain out before you could do this. 6. You have had a mild problem with your memory while in the rehab unit. I suspect it may have something to do with the meds. Lyrica, Cyclobenzaprine and Tramadol can all slow your thinking down. Hopefully you will be able to get off some of these medications soon. I notice when I take Lyrica my thinking is slow and I am not as sharp. 7. It has been a pleasure to meet you Marisol and to work with you. If you have any questions after you are home please do not hesitate to call me at [phone] (cell) or [phone] (office). You could also call the rehab unit at [phone]. Take care of yourself Marisol and stay safe. Always wear a mask when you are out in public.....COVID is a very nasty virus and your sure do not want to get it. Allergies/Adverse Reactions: Allergies No Known Allergies Allergy (Verified 01/18/20 15:22) Medications to take at Discharge Docusate Sodium 100 mg PO BID 01/18/20 Sennosides [Senna] 8.6 mg PO BID 01/18/20 Venlafaxine XR [Effexor Xr] 75 mg PO DAILY 01/18/20 Acetaminophen 975 mg PO Q8 #0 01/24/20 Cephalexin [Keflex] 500 mg PO Q12H #16 cap 01/24/20 Cholecalciferol (VIT D3) [Vitamin D3] 1,000 unit PO BID #60 tab 01/24/20 Cyclobenzaprine HCl 5 mg PO TID PRN PRN #20 tab 01/24/20 Folic Acid 1 mg PO 2100 #30 tab 01/24/20 Meloxicam 15 mg PO DAILY #30 tab 01/24/20 Omeprazole 40 mg PO DAILY #30 cap 01/24/20 Pregabalin [Lyrica] 150 mg PO BID #60 capsule 01/24/20 traMADol [Ultram] 50 mg PO Q8H PRN PRN #21 tablet 01/24/20 The following prescriptions were given: Cyclobenzaprine HCl 5 mg PO TID PRN PRN #20 tab PRN Reason: Spasms Transmission Status: Pending to [facility] Folic Acid 1 mg PO 2100 #30 tab Transmission Status: Pending to [facility] Cephalexin [Keflex] 500 mg PO Q12H #16 cap Transmission Status: Pending to [facility]48 Pregabalin [Lyrica] 150 mg PO BID #60 capsule Transmission Status: Sent to [facility] Meloxicam 15 mg PO DAILY #30 tab Transmission Status: Pending to [facility]48 Omeprazole 40 mg PO DAILY #30 cap Transmission Status: Pending to [facility]48 traMADol [Ultram] 50 mg PO Q8H PRN PRN #21 tablet PRN Reason: PAIN 5-6 Transmission Status: Sent to [facility] Cholecalciferol (VIT D3) [Vitamin D3] 1,000 unit PO BID #60 tab Transmission Status: Pending to [facility] Primary Care Physician: VIPUL LANDAVERDE [Other] Test Results: Test results from this visit will be discussed in further detail at your follow- up appointment, if applicable. Please Follow Up With: Dr. Brooks Palomares-PCP Please Follow Up With: Dr. Singh-plastic surgery When: Thursday Please Follow Up With: Latasha Torres for Dr. Landaverde-ortho When: Thursday Proposed Discharge Date: 01/25/20
--- NOTE | 2020-01-24 18:26 | DS.PCM_ITS ---
Discharge Date and Diagnosis - Problem List Patient Problems: Active and Suspected Problems History of spinal fusion (Acute) T4 through the pelvis with flap muscle/myocutaneous/fasciocutaneous trunk and removal of spinal stimulator Hypokalemia (Acute) Acute blood loss anemia (Acute) Abnormal LFTs (Acute) Transfusion history (Acute) at [facility] had transfusion of PRBC's and plasma Date of Admission: 01/18/20 Date of Discharge: 01/25/20 - Primary Discharge Diagnosis Acute Problems: Active Problems History of spinal fusion (Acute) T4 through the pelvis with flap muscle/myocutaneous/fasciocutaneous trunk and removal of spinal stimulator Hypokalemia (Acute) - resolved Acute blood loss anemia (Acute) Abnormal LFTs (Acute) - mildly elevated AP and transaminases Transfusion history (Acute) at OSH had transfusion of PRBC's and plasma and she had 1 unit of PRBC's at [facility] while in acute rehab Mild cognitive impairment - I suspect this may be related to the combined use of Tramadol, cyclobenzaprine and high dose Lyrica - Secondary Discharge Diagnosis Chronic Problems: Chronic Problems Osteoarthritis (Chronic) Depression (Chronic) Scoliosis of lumbar spine (Chronic) GERD (gastroesophageal reflux disease) (Chronic) Severe Spinal stenosis (Chronic) History of migraine (Chronic) History of nephrolithiasis (Chronic) Chronic pain syndrome (Chronic) Medical cannabis use (Chronic) Hospital Course and Treatment Imaging Results: Laboratory Last Values WBC 7.1 K/mm3 (4.4-11.0) 01/19/20 05:45 RBC 3.00 M/mm3 (4.2-5.4) L 01/19/20 05:45 Hgb 7.4 g/dL (12.0-15.0) L 01/24/20 05:38 Hct 24.8 % (37-47) L 01/24/20 05:38 MCV 90.7 fL (81-99) 01/19/20 05:45 MCH 28.3 pg (27.0-32.0) 01/19/20 05:45 MCHC 31.3 g/dL (32-36) L 01/19/20 05:45 RDW Std Deviation 56.7 fl (35.1-43.9) H 01/19/20 05:45 RDW Coeff of Venu 17.2 % (11.6-14.6) H 01/19/20 05:45 Plt Count 201 K/mm3 (150-450) 01/19/20 05:45 MPV 10.0 fl (6.2-12.0) 01/19/20 05:45 Immature Gran % (Auto) 0.700 % (0.0-0.9) 01/19/20 05:45 Neut % (Auto) 73.8 % (47-70) H 01/19/20 05:45 Lymph % (Auto) 14.2 % (19-41) L 01/19/20 05:45 [place] % (Auto) 8.6 % (0-10) 01/19/20 05:45 Eos % (Auto) 2.4 % (0-5) 01/19/20 05:45 Baso % (Auto) 0.3 % (0-1) 01/19/20 05:45 Absolute Neuts (auto) 5.2 X10^3/uL (2.0-7.7) 01/19/20 05:45 Absolute Lymphs (auto) 1.00 X10^3/uL (0.83-4.51) 01/19/20 05:45 Nucleated RBC % 0 % (0-5) 01/19/20 05:45 Sodium 142 mmol/L (136-145) 01/19/20 05:45 Potassium 3.6 mmol/L (3.5-5.1) 01/24/20 05:38 Chloride 104 mmol/L (98-107) 01/19/20 05:45 Carbon Dioxide 31.0 mmol/L (21.0-32.0) 01/19/20 05:45 Anion Gap 7 (5-15) 01/19/20 05:45 BUN 7 mg/dL (7-18) 01/19/20 05:45 Creatinine 0.57 mg/dL (0.55-1.02) 01/19/20 05:45 Estim Creat Clear Calc 49.51 ml/min 01/19/20 05:45 Est GFR (MDRD) Af Amer 133 mL/min (>60) 01/19/20 05:45 Est GFR (MDRD) Non-Af 110 mL/min (>60) 01/19/20 05:45 BUN/Creatinine Ratio 12.2 RATIO (10-20) 01/19/20 05:45 Glucose 105 mg/dL (74-106) 01/19/20 05:45 Calcium 8.3 mg/dL (8.5-10.1) L 01/19/20 05:45 Phosphorus 3.4 mg/dL (2.5-4.9) 01/19/20 05:45 Magnesium 2.3 mg/dL (1.6-2.6) 01/19/20 05:45 Total Bilirubin 0.90 mg/dL (0.20-1.00) 01/19/20 05:45 AST 68 U/L (15-37) H 01/19/20 05:45 ALT 58 U/L (13-56) H 01/19/20 05:45 Alkaline Phosphatase 176 U/L (45-117) H 01/19/20 05:45 Total Protein 5.7 g/dL (6.4-8.2) L 01/19/20 05:45 Albumin 2.4 g/dL (3.2-5.0) L 01/19/20 05:45 Globulin 3.3 g/dL (2.2-4.2) 01/19/20 05:45 Albumin/Globulin Ratio 0.7 RATIO (0.9-2.4) L 01/19/20 05:45 Blood Type AB POSITIVE 01/24/20 11:25 Antibody Screen NEGATIVE 01/24/20 11:25 Crossmatch See Detail 01/24/20 11:25 none Operations: None Procedures: - - Transfusion of 1 unit of packed red blood cells on 01/24/2020 for a hemoglobin of 7.4. Summary of Care Provided: Marisol Vasquez is a 75 YO F with a PMH of GERD, severe spinal stenosis, severe scoliosis, spinal stimulator insertion, chronic pain syndrome, history of migraines, history of nephrolithiasis, depression, tobacco dependence in remission (quit when she was 32 years of age) and medical cannabis use who underwent a spinal fusion from T4 through the pelvis on 01/13/20 at [facility]. Plastic surgery closed the wound with a myocutaneous flap. While at [facility] she had acute blood loss anemia and was transfused with PRB's and plasma. Pre- operatively she had a ECHO that showed a normal EF and trivial AR with no diastolic dysfunction. She was transferred to the inpt unit at [facility] on 01/18/20 for > 3 hours of therapy daily to restore her at or near her prior level of function. Lab at presentation to acute rehab showed a normal white blood cell count, normal platelet count and a decreased hemoglobin at 8.5 with an MCV of 90.7 and an increased RDW. Chemistry showed a decreased potassium at 3.1 with a BUN of 7 and a creatinine of 0.57. Liver panel showed a normal bilirubin with a mildly elevated AST at 68 and a mildly elevated ALT at 58. The alkaline phosphatase was also mildly elevated at 176. Calcium was low at 8.3 but when corrected for hypoalbuminemia the calcium was 9.5. the potassium was supplemented and prior to Dc the K was 3.6. Repeat HH prior to DC was 7.4/24.8 and she had occasional lightheadedness with standing. She was transfused with 1 unit of PRBC's on 01/24/20. The HGB on 01/25/20 just prior to DC was 9.1, up from 7.4 following transfusion of 1 unit of packed red blood cells. Marisol did amazingly well for the extent of fusion performed and the long d uration of the procedure. when she arrivedd on rehab she told me that she had not slept for 3 nights due to unrelieved pain. She had been receiving Tylenol 975 mg every 8 hours, Flexeril 5 mg TID, Lyrica 150 mg BID and Oxycodone 2.5 mg Q 6H as needed. When I asked what worked for her for pain in the past she told me Tramadol. Oxycodone was discontinued, Flexeril was made PRN and she was started on Tramadol 50 mg at HS and 50 mg BID PRN breakthrough pain. She slept well that first night and has not had a problem since sleeping. She took only 1 Flexeril during her entire admission. Prior to discharge she was ambulating 300 feet with a wheeled walker at supervision. She was trialed with a quad cane and also with no assistive device however she is quite impulsive and does not always remember her back restrictions. The physical therapist continues to recommend she use a wheeled walker as a guide for her to stay within her limits. She had gone up and down 5 steps with 2 rails at standby assist in a reciprocal pattern. She is able to complete upper body and lower body dressing with standby assist. She still requires moderate assistance for toileting, especially posterior hygiene. Marisol was also seen by speech therapy while in the hospital and has no difficulty swallowing. She does have mild cognitive deficit. The speech therapist property management assistant Marisol and compounding a folder of safety strategies, therapy goals, spinal precautions and memory strategies to help her in her recovery. She is impulsive and does not have good safety awareness at times. She also takes off her alarm and walks around her room and into the reyes without the back brace on. I related to her that he is going to have to help her with recalling to wear the brace when out of bend and to avoid bending, lifting and twisting. Marisol was discharged early in the morning on 01/25/20 so that she could make it to her appt with the ortho [facility] [facility] at 10:45. It will be up to the surgeon to determine if she should have HHC for ongoing therapy or if she should receive OP therapy. Marisol was given the SW's # to call if she needs help arranging therapy going forward. General: Alert, Oriented x3, Cooperative, No apparent distress, sitting in the recliner at the bedside with her brace on Oral: Moist Mucosa Neck: Supple, no cervical nodes Lungs: Clear to auscultation with good air exchange, no conversational dyspnea and she is not tachypneic. Cardiovascular: Regular rate, Regular Rhythm, Normal S1, Normal S2, No Gallop, no ectopic activity, no murmur Abdomen: Bowel Sounds Present, Soft, Non Tender, Non-Distended, no guarding with palpation. Extremities: No edema, no calf tenderness, she has intact neurovascular bundle to both lower extremities Skin: No rashes, No breakdown, - - The incision is intact with no dehiscence. There is no izzy-incisional erythema and no discharge from the incision. The fluid in the JU drain is thin and red tinged Neurological: Cranial nerves II-XII grossly intact, Neuro grossly intact Psych/Mental Status: Normal Affect, Appropriate This note was generated with mobile melting gmbhation software. It may contain incorrect words, spelling, and punctuation that were not noted in checking the note before signing. Patient Problems: Active and Suspected Problems History of spinal fusion (Acute) T4 through the pelvis with flap muscle/myocutaneous/fasciocutaneous trunk and removal of spinal stimulator Hypokalemia (Acute) Acute blood loss anemia (Acute) Abnormal LFTs (Acute) Transfusion history (Acute) at [facility] had transfusion of PRBC's and plasma - Physical Exam Vitals/I&O's: Vital Signs Temp Pulse Resp BP Pulse Ox 98 F 84 17 136/70 H 97 01/24/20 16:55 01/24/20 16:55 01/24/20 16:55 01/24/20 16:55 01/24/20 16:55 Oxygen Delivery Method Room Air Weight: 138 lb 0.009 oz Body Mass Index (BMI) 29.8 Intake and Output for Last 24 Hours 01/22/20 01/23/20 01/24/20 23:59 23:59 23:59 Intake Total 2500 / 2500 2120 / 2120 Output Total 960 / 960 1430 / 1430 Balance 1540 / 1540 690 / 690 Laboratory Results 01/24/20 05:38: Hgb 7.4 L, Hct 24.8 L 01/24/20 05:38: Potassium 3.6 01/24/20 11:25: Blood Type AB POSITIVE, Antibody Screen NEGATIVE, Crossmatch See Detail Current Medications Acetaminophen (Acetaminophen 325 Mg Tablet) 975 mg PO Q6 [facility] Last Admin: 01/24/20 13:19 Dose: 975 mg Documented by: Bisacodyl (Bisacodyl 10 Mg Suppository) 10 mg RECTAL .PRN X 1 PRN PRN Reason: Constipation Cephalexin (Cephalexin 500 Mg Capsule) 500 mg PO Q12H [facility] Stop: 02/01/20 22:01 Last Admin: 01/24/20 09:20 Dose: 500 mg Documented by: Cholecalciferol (Cholecalciferol (Vit D3) 1,000 Unit (25mcg)) 2,000 unit PO DAILY [facility] Last Admin: 01/24/20 07:48 Dose: 2,000 unit Documented by: Cyclobenzaprine HCl (Cyclobenzaprine Hcl 5 Mg Tablet) 5 mg PO TID PRN PRN Reason: SPASMS Last Admin: 01/23/20 04:57 Dose: 5 mg Documented by: Docusate Sodium (Docusate Sodium 100 Mg Capsule) 100 mg PO BID [facility] Last Admin: 01/24/20 07:55 Dose: Not Given Documented by: Enoxaparin Sodium (Enoxaparin 40 Mg/0.4 Ml Syringe) 40 mg SC DAILY@0600 [facility] Last Admin: 01/24/20 04:58 Dose: 40 mg Documented by: Folic Acid (Folic Acid 1 Mg Tablet) 1 mg PO 2099 [facility] Last Admin: 01/23/20 20:47 Dose: 1 mg Documented by: Sodium Chloride () 500 mls @ 15 mls/hr IV PRN PRN PRN Reason: Blood Transfusion Magnesium Hydroxide (Magnesium Hydroxide 30 Ml Udc) 30 ml PO .PRN X 1 PRN PRN Reason: Constipation Meloxicam (Meloxicam 15 Mg Tablet) 15 mg PO DAILY [facility] Last Admin: 01/24/20 07:48 Dose: 15 mg Documented by: Oxycodone HCl (Oxycodone 5 Mg Tablet) 2.5 mg PO Q8 PRN PRN Reason: PAIN 7-10 Last Admin: 01/24/20 04:51 Dose: 2.5 mg Documented by: Pantoprazole Sodium (Pantoprazole Sodium 40 Mg Tablet) 40 mg PO DAILY [facility] Last Admin: 01/24/20 07:48 Dose: 40 mg Documented by: Pregabalin (Pregabalin 75 Mg Capsule) 150 mg PO BID [facility] Last Admin: 01/24/20 09:20 Dose: 150 mg Documented by: Senna (Senna Tablet) 1 tablet PO BID [facility] Last Admin: 01/24/20 07:55 Dose: Not Given Documented by: Sodium Chloride (0.9% Saline Lock 10 Ml Syringe) 10 - 40 ml IV UD PRN PRN Reason: SALINE FLUSH Tramadol HCl (Tramadol 50 Mg Tablet) 50 mg PO TID PRN PRN PRN Reason: PAIN 5-6 Last Admin: 01/24/20 16:47 Dose: 50 mg Documented by: Tramadol HCl (Tramadol 50 Mg Tablet) 50 mg PO 2099 [facility] Last Admin: 01/23/20 20:47 Dose: 50 mg Documented by: Venlafaxine HCl (Venlafaxine Xr 75 Mg Capsule) 75 mg PO DAILY [facility] Last Admin: 01/24/20 07:48 Dose: 75 mg Documented by: Discharge Activity: May Not Drive, May not drive while taking narcotic pain medications., May Shower, - - NO BENDING, LIFTING OR TWISTING. Wear your back brace at all times unless you are in bed. May resume sexual activity in: - - this decision will be up to the orthopedic surgeon. Weight Bearing Status: Full weight bearing Call your doctor if your incision/area has: Continuous Slow Oozing, Sudden Increased Bleeding, Increased Pain/ Swelling, Increased Redness, Foul Smelling Discharge, Swelling at the incision site Call your doctor if you observe: Fever of 101 or Higher, Numbness or Tingling - in your legs, Shortness of breath, Dizziness, Fainting spells, Swelling in the ankles, Chest pain, Increased palpitations (irregular heartbeat), Calf discomfort, Uncontrolled pain, - - Call your PCP if severe diarrhea ( > 5 stools a day), painful sores in the mouth, painful swallowing, rash or itching. Taking a probiotic such as Lactobacillus or Kefir can help with loose stools while taking antibiotics. Suture Line Care: Avoid Pulling/Pushing, Avoid Pinching/Bending Cleanse incision/area with: Soap & Water Drain: [place] Home Medications: Medications to take at Discharge Docusate Sodium 100 mg PO BID 01/18/20 Sennosides [Senna] 8.6 mg PO BID 01/18/20 Venlafaxine XR [Effexor Xr] 75 mg PO DAILY 01/18/20 Acetaminophen 975 mg PO Q8 #0 01/24/20 Cephalexin [Keflex] 500 mg PO Q12H #16 cap 01/24/20 Cholecalciferol (VIT D3) [Vitamin D3] 1,000 unit PO BID #60 tab 01/24/20 Cyclobenzaprine HCl 5 mg PO TID PRN PRN #20 tab 01/24/20 Folic Acid 1 mg PO 2100 #30 tab 01/24/20 Meloxicam 15 mg PO DAILY #30 tab 01/24/20 Omeprazole 40 mg PO DAILY #30 cap 01/24/20 Pregabalin [Lyrica] 150 mg PO BID #60 cap 01/24/20 traMADol [Ultram] 50 mg PO Q8H PRN PRN #21 tab 01/24/20 Following Prescriptions Were Given to Patient: Cyclobenzaprine HCl 5 mg PO TID PRN PRN #20 tab PRN Reason: Spasms Transmission Status: Received by [facility] Folic Acid 1 mg PO 2100 #30 tab Transmission Status: Received by [facility]48 Cephalexin [Keflex] 500 mg PO Q12H #16 cap Transmission Status: Received by [facility]48 Pregabalin [Lyrica] 150 mg PO BID #60 cap Transmission Status: Received by [facility]48 Meloxicam 15 mg PO DAILY #30 tab Transmission Status: Received by [facility]48 Omeprazole 40 mg PO DAILY #30 cap Transmission Status: Received by [facility]48 traMADol [Ultram] 50 mg PO Q8H PRN PRN #21 tab PRN Reason: PAIN 5-6 Transmission Status: Received by [facility]48 Cholecalciferol (VIT D3) [Vitamin D3] 1,000 unit PO BID #60 tab Transmission Status: Received by [facility]48 Primary Care Physician: VIPUL LANDAVERDE [Other] Please Follow Up With: Dr. Brooks Palomares-PCP When: Thursday Please Follow Up With: Dr. Singh-plastic surgery When: Thursday Please Follow Up With: Latasha Torres for Dr. Landaverde-ortho When: Thursday Patient Instructions: Spinal Fusion: Posterior Lumbar, Spinal Fusion: Recovery, Lumbar Fusion Disposition: Home Minutes spent on discharge:: 45 Patient Condition:: Good Medical Necessity - Tobacco Use Smoking Status: Former smoker - quit at 32 YOA Tobacco Use: Non-smoker Meaningful Use Info Meaningful Use Diagnoses (Choose all that apply): None applicable Inpatient E&M: 14484 Disch Hosp
[2020-01-24] MEDS: Docusate Sodium 100 MG Capsule PO (20:01)
[2020-01-24] MEDS: Senna Tablet 1 TABLET PO (20:02)
[2020-01-24] MEDS: Folic Acid 1 MG Tablet PO (20:02)
[2020-01-25] MEDS: Acetaminophen 325 MG Tablet 975 MG PO (00:46)
--- NOTE | 2020-01-25 02:35 | NURSING ---
Reviewed and agree with [employer] documentation and charting.
[2020-01-25] MEDS: Enoxaparin 40 MG/0.4 ML Syringe SC (05:28)
[2020-01-25 05:37] LABS: Hematocrit 29.2 % (37-47); Hemoglobin 9.1 g/dL (12.0-15.0)
[2020-01-25 09:58] VITALS: BP 149/79; PULSE 84; RESP 18; TEMP 36.5; O2SAT 95
--- NOTE | 2020-01-25 12:45 | CASEMGMT ---
Social Work called after pt's f/u appt. Surgeon only recommending a cane and no further therapy - just to walk. to purchase cane from drug store. No other SW needs. Raven Lovett, SCRUBBER OPERATOR SENIOR ORACLE APPLICATIONS DEVELOPER
== END 2020-01-25 07:49 | disposition home or self-care (01) | DRG 560 ==
PROVIDERS: Admitting Provider Internal Medicine; Referring Provider Internal Medicine; Visit Provider Internal Medicine
DX: Z47.89 Encounter for other orthopedic aftercare (principal); D62 Acute posthemorrhagic anemia; Z98.1 Arthrodesis status; M19.90 Unspecified osteoarthritis, unspecified site; K21.9 Gastro-esophageal reflux disease without esophagitis; F32.9 Major depressive disorder, single episode, unspecified; G89.4 Chronic pain syndrome; M41.9 Scoliosis, unspecified; Z87.891 Personal history of nicotine dependence; G43.909 Migraine, unspecified, not intractable, without status migrainosus; E87.6 Hypokalemia; G31.84 Mild cognitive impairment of uncertain or unknown etiology
CPT/HCPCS: 36415; 80053; 82274; 83735; 84100; 84132; 85014; 85018; 85025; 86850; 86900; 86901; 86920; 86922; 92507; 92523; 92610; 97110; 97116; 97162; 97166; 97530; 97535; 97802; 99251; P9016; G0463

== ENCOUNTER → 2020-04-16 15:37 | Outpatient (CLI) | payer MEDICARE, OTHER, SELFPAY ==
[2020-01-18 13:56] VITALS: BMI 29.8
== END ==
PROVIDERS: Referring Provider Nurse Practitioner Adult Health; Visit Provider Nurse Practitioner Adult Health
DX: N39.0 Urinary tract infection, site not specified (principal)
CPT/HCPCS: 87077; 87086; 87088; 87186